=== PATIENT | male | born 1990 | race Caucasian/White ===

== ENCOUNTER 2017-11-09 20:52 | Emergency (ER) | payer OTHER ==
[2017-11-09 21:18] VITALS: BP 130/79
--- NOTE | 2017-11-09 21:48 | C.PDOC ---
History Of Present Illness 27 yo male come in for evaluation of Left 4th finger pain, swelling developed for past hours after sustained injury at home. Pt sts, " AC fell down on my finger". Otherwise, pt denies obvious deformity, skin changes, weakness, sensory or vascular deficist to left 4th finger. Ambulate to ED for evaluation, not in any apparent distress. Time Seen by Provider: 11/09/17 21:16 Chief Complaint (Nursing): Finger,Hand,&Wrist History Per: Patient Onset/Duration Of Symptoms: Sudden Onset Past Medical History Reviewed: Historical Data, Nursing Documentation, Vital Signs Vital Signs: Last Vital Signs Temp 97.9 F 11/09/17 21:13 Pulse 94 H 11/09/17 21:13 Resp 20 11/09/17 21:13 BP 130/79 11/09/17 21:13 Pulse Ox 95 11/09/17 21:13 - Medical History PMH: No Chronic Diseases Family History: States: No Known Family Hx - Social History Hx Tobacco Use: No Hx Alcohol Use: No Hx Substance Use: No - Immunization History Hx Tetanus Toxoid Vaccination: No Hx Influenza Vaccination: No Hx Pneumococcal Vaccination: No Review Of Systems Except As Marked, All Systems Reviewed And Found Negative. Constitutional: Negative for: Fever, Chills Musculoskeletal: Positive for: Hand Pain Skin: Negative for: Lesions Neurological: Negative for: Weakness, Numbness Physical Exam - Physical Exam Appears: Well, Non-toxic, No Acute Distress Skin: Normal Color, Warm, No Rash, No Ecchymosis Extremity: Normal ROM (mild discomfort to Left 4th DIPJ flexion due to pain, no neurovascular deficits distally), Tenderness (diffuse left 4th middle phalanx), Capillary Refill (less than 2sec to left 4th finger), Deformity (Left 4th middle phalanx), Swelling (Left 4th finger) Neurological/Psych: Oriented x3, Normal Speech, Normal Motor, Normal Sensation, Normal Reflexes ED Course And Treatment O2 Sat by Pulse Oximetry: 95 - Other Rad Left 4th finger X-Ray: Interpreted by Me, Viewed By Me Interpretation: (+) spiral fx to left 4th middle phalanx Progress Note: On re-eval, pt is afebrile, hemodynamicaly stable. Left hand: exam c/w Left 4th finger contusion r/o fracture, No obvious deformity, no neurovascular deficits, no skin chanfes. Imaging review (+) spiral fx 4th middle phalanx, left. ALuminium finger splint applied to Left 4th finger. Pt advised and ref. to f/u with Ortho in 1-2 days for re-eavl. return if any new changes. Disposition Counseled Patient/Family Regarding: Studies Performed, Diagnosis, Need For Followup, Rx Given - Disposition Referrals: Bro Mckeon MD [Staff Provider] - [facility] [Outside] Disposition Time: 21:46 Condition: STABLE Additional Instructions: Splint Follow up with hand specialist or ortho in 1-2 days for re-evaluation. Return to ED if any new changes. Prescriptions: traMADol [Ultram] 50 mg PO TID #7 tab Instructions: Finger Fracture - Clinical Impression Clinical Impression: Finger fracture
[2017-11-09] MEDS ORDERED: Amoxicillin-Clav 875-125 mg Tab PO STA (22:06)
[2017-11-09] MEDS ORDERED: Tetanus/Diphtheria Toxoids 0.5 ml Syringe IM ONE ×2 (22:06→22:21)
[2017-11-09] MEDS ORDERED: Amoxicillin-Clav 875-125 mg Tab PO ONE (22:20)
[2017-11-09 22:31] VITALS: PULSE 60; RESP 18; TEMP 97.7; O2SAT 99
--- NOTE | 2017-11-10 14:14 | RAD ---
PROCEDURE: Left ring finger radiographs. HISTORY: injuy COMPARISON: None. TECHNIQUE: AP radiograph of the left hand, as well as spot oblique and lateral images of left ring finger were obtained. FINDINGS: LEFT RING FINGER: There is a spiral/oblique fracture traversing the middle phalanx 4th finger with overlying soft tissue swelling. Remaining osseous structures intact. . JOINTS: Joint spaces preserved SOFT TISSUES: As above OTHER FINDINGS: None. IMPRESSION: There is a spiral/oblique fracture traversing the middle phalanx 4th finger with overlying soft tissue swelling. Remaining osseous structures intact. .
== END 2017-11-09 22:31 | disposition home or self-care (01) ==
LOC: C.ER 20:52
DX: S62.625A Displaced fracture of middle phalanx of left ring finger, initial encounter for closed fracture (principal); S62.627A Displaced fracture of middle phalanx of left little finger, initial encounter for closed fracture; S61.217A Laceration without foreign body of left little finger without damage to nail, initial encounter; W22.8XXA Striking against or struck by other objects, initial encounter; Y92.009 Unspecified place in unspecified non-institutional (private) residence as the place of occurrence of the external cause